=== PATIENT | male | born 1980 | race American Indian/Alaskan Native ===

== ENCOUNTER 2018-05-13 13:12 | Emergency (ER) | payer SELFPAY ==
--- NOTE | 2018-05-13 14:02 | Emergency Department Report ---
Blank Doc - Documentation Documentation: This is a 38-year-old male that presents with vomiting and body aches. Stated history of DM and does take medications regularly. This initial assessment/diagnostic orders/clinical plan/treatment(s) is/are subject to change based on patient's health status, clinical progression and re- assessment by fellow clinical providers in the ED. Further treatment and workup at subsequent clinical providers discretion. Patient/guardians urged not to elope from the ED as their condition may be serious if not clinically assessed and managed. Initial orders include: 1- Patient sent to [facility] for further evaluation and treatment 2- Labs 3- UA
[2018-05-13 14:03] VITALS: BP 119/91
[2018-05-13 14:49] LABS: Basophils % (Auto) 0.4 % (0.0-1.8); Eosinophils # (Auto) 0.1 K/mm3 (0.0-0.4); Eosinophils % (Auto) 1.3 % (0.0-4.3); Hematocrit 46.1 % (35.5-45.6); Hemoglobin 15.2 gm/dl (11.8-15.2); Lymphocytes # (Auto) 2.2 K/mm3 (1.2-5.4); Lymphocytes % (Auto) 34.1 % (13.4-35.0); Mean Corpuscular HGB Conc 33 % (32-34); Mean Corpuscular Volume 89 fl (84-94); Monocytes # (Auto) 0.8 K/mm3 (0.0-0.8); Monocytes % (Auto) 12.2 % (0.0-7.3); Platelet Count 259 K/mm3 (140-440); Red Blood Count 5.17 M/mm3 (3.65-5.03); Red Cell Distribution Width 12.8 % (13.2-15.2)
[2018-05-13 14:55] LABS: Alanine Aminotransferase 25 units/L (7-56); Albumin 4.5 g/dL (3.9-5); BUN/Creatinine Ratio 14; Bilirubin,Direct 0.3 mg/dL (0-0.2); Blood Urea Nitrogen 14 mg/dL (9-20); Calcium 9.5 mg/dL (8.4-10.2); Hemolysis Index 6
[2018-05-13] MEDS ORDERED: ZOFRAN IV ONE (17:14)
[2018-05-13] MEDS ORDERED: NACL 0.9% 1000 ML 1,000 ML IV ONE (17:14)
[2018-05-13] MEDS ORDERED: D50W (25GM) Syringe IV ONE (17:40)
--- NOTE | 2018-05-13 18:45 | Emergency Department Report ---
Vomiting/Diarrhea - HPI Chief Complaint: Abdominal Pain Stated Complaint: DIABETIC ISSUES Time Seen by Provider: 05/13/18 14:00 Duration: 3 Days Severity: mild Nausea/Vomiting Severity: Mild Diarrhea Severity: None Pain Location: Other (No abdominal pain) Pain Severity: None Symptoms: Yes Able to Tolerate Fluids, Yes Recent Unusual Foods ([employer]), No Watery Diarrhea, No Bloody diarrhea, No Fever, No Recent Untreated Water, No Recent use of Antibiotics, No Family w/ Similar Symptoms, No Contacts w/ Similar Symptoms, No Rash, No Hematuria, No Recent URI Symptoms Other History: 38-year-old diabetic male who takes NovoLog for his diabetes presents to ED complaining of vomiting for the past 2 days. Patient states it is ago he had a Gray's male and the next day he started feeling queasy. Patient denies diarrhea or abdominal pain. He denies fevers/chills/chest pain/shortness of breath ED Review of Systems ROS: Stated complaint: DIABETIC ISSUES Other details as noted in HPI Comment: All other systems reviewed and negative ED Past Medical Hx - Past Medical History Previous Medical History?: Yes Hx Hypertension: Yes Hx Congestive Heart Failure: No Hx Diabetes: Yes Hx Sickle Cell Disease: Yes (trait only) Hx Asthma: No Hx COPD: No Hx HIV: No Additional medical history: sickle cell trait, DKA. high cholesterol. - Surgical History Past Surgical History?: Yes Additional Surgical History: "ear surgery as a child" - Social History Smoking Status: Current Every Day Smoker Substance Use Type: Alcohol - Medications Home Medications: Home Medications Medication Instructions Recorded Confirmed Last Taken Type Simvastatin [Zocor TAB] 10 mg PO HS #30 tablet 09/10/13 10/01/13 Unknown Rx Insulin NPH/Regular [NovoLIN 70/30] 15 unit SQ QPMDIAB 60 Days ml 10/03/13 Unknown Rx Insulin NPH/Regular [NovoLIN 70/30] 30 unit SQ QAMDIAB 60 Days ml 10/03/13 Unknown Rx Lisinopril [Zestril] 2.5 mg PO QDAY #60 tablet 10/03/13 Unknown Rx Acetaminophen/Codeine [Tylenol #3] 1 tab PO Q6H PRN #30 tab 08/11/14 Unknown Rx Ibuprofen [Motrin] 600 mg PO Q8H PRN #50 tablet 08/11/14 Unknown Rx Sulfamethoxazole/Trimethoprim 1 each PO BID #20 tablet 08/11/14 Unknown Rx [Bactrim Ds] Ondansetron [Zofran ODT TAB] 8 mg PO Q12HR #20 tab.rapdis 05/13/18 Unknown Rx Vomiting Diarrhea Exam - Exam General: Vital signs noted. No distress. Alert and acting appropriately. No active vomiting in the ED. HEENT: Yes Moist Mucous Membranes, No Pharyngeal Erythema, No Pharyngeal Exudates, No Rhinorrhea, No Conjuctival Injection, No Frontal Tenderness, No Maxillary Tenderness Neck: No Adenopathy, No Rigidity Lungs: Yes Clear Lung Sounds, Yes Good Air Exchange, No Wheezes, No Stridor, No Cough, No Nasal Flaring, No Retractions, No Use of Accessory Muscles Heart exam: Regular: Yes, Murmur: No, Tachycardia: No Abdomen: Tenderness: No (on all quadrants), Peritoneal Signs: No, Distention: No, Hyperactive Bowel sounds: No Skin exam: Rash: No, Edema: No, Normal turgor: Yes Neurologic: Alert and oriented, no deficits. Musculoskeletal: Unremarkable. ED Course Vital Signs 05/13/18 14:00 Temperature 97.8 F Pulse Rate 105 H Respiratory 18 Rate Blood Pressure 119/91 O2 Sat by Pulse 98 Oximetry - Reevaluation(s) Reevaluation #1: Patient is resting comfortably, 500 mL done Patient's plan of care glucose decreased to about 40. Dextrose was given Blood glucose increased to 186. he is alert and oriented 3 speaking in clear sentences is in no acute distress 05/13/18 17:05 ED Medical Decision Making - Lab Data Result diagrams: 05/13/18 14:20 05/13/18 14:20 Laboratory Last Values WBC 6.3 K/mm3 (4.5-11.0) 05/13/18 14:20 RBC 5.17 M/mm3 (3.65-5.03) H 05/13/18 14:20 Hgb 15.2 gm/dl (11.8-15.2) 05/13/18 14:20 Hct 46.1 % (35.5-45.6) H 05/13/18 14:20 MCV 89 fl (84-94) 05/13/18 14:20 MCH 30 pg (28-32) 05/13/18 14:20 MCHC 33 % (32-34) 05/13/18 14:20 RDW 12.8 % (13.2-15.2) L 05/13/18 14:20 Plt Count 259 K/mm3 (140-440) 05/13/18 14:20 Lymph % (Auto) 34.1 % (13.4-35.0) 05/13/18 14:20 Granite % (Auto) 12.2 % (0.0-7.3) H 05/13/18 14:20 Eos % (Auto) 1.3 % (0.0-4.3) 05/13/18 14:20 Baso % (Auto) 0.4 % (0.0-1.8) 05/13/18 14:20 Lymph # 2.2 K/mm3 (1.2-5.4) 05/13/18 14:20 Granite # 0.8 K/mm3 (0.0-0.8) 05/13/18 14:20 Eos # 0.1 K/mm3 (0.0-0.4) 05/13/18 14:20 Baso # 0.0 K/mm3 (0.0-0.1) 05/13/18 14:20 Seg Neutrophils % 52.0 % (40.0-70.0) 05/13/18 14:20 Seg Neutrophils # 3.3 K/mm3 (1.8-7.7) 05/13/18 14:20 Sodium 136 mmol/L (137-145) L 05/13/18 14:20 Potassium 3.9 mmol/L (3.6-5.0) 05/13/18 14:20 Chloride 93.2 mmol/L (98-107) L 05/13/18 14:20 Carbon Dioxide 28 mmol/L (22-30) 05/13/18 14:20 Anion Gap 19 mmol/L 05/13/18 14:20 BUN 14 mg/dL (9-20) 05/13/18 14:20 Creatinine 1.0 mg/dL (0.8-1.5) 05/13/18 14:20 Estimated GFR > 60 ml/min 05/13/18 14:20 BUN/Creatinine Ratio 14 % 05/13/18 14:20 Glucose 131 mg/dL (75-100) H 05/13/18 14:20 POC Glucose 186 (70-105) H 05/13/18 18:13 Calcium 9.5 mg/dL (8.4-10.2) 05/13/18 14:20 Total Bilirubin 1.80 mg/dL (0.1-1.2) H 05/13/18 14:20 Direct Bilirubin 0.3 mg/dL (0-0.2) H 05/13/18 14:20 Indirect Bilirubin 1.5 mg/dL 05/13/18 14:20 AST 40 units/L (5-40) 05/13/18 14:20 ALT 25 units/L (7-56) 05/13/18 14:20 Alkaline Phosphatase 64 units/L (35-129) 05/13/18 14:20 Total Protein 8.2 g/dL (6.3-8.2) 05/13/18 14:20 Albumin 4.5 g/dL (3.9-5) 05/13/18 14:20 Albumin/Globulin Ratio 1.2 % 05/13/18 14:20 Lipase 67 units/L (13-60) H 05/13/18 14:20 - Medical Decision Making 38-year-old male presents with mild gastroenteritis. CBC within normal limits no elevated WBCs, electrolytes mildly depleted will resuscitate patient with fluids. 1 L normal saline. Patient received Zofran ODT. Patient had no active vomiting during the ED stay. Patient reports feeling better after administration of Normal saline. Patient will be discharged home with Zofran and instructions for bowel rest. Discussed with the patient to increase hydration Discussed follow-up with primary care physician. Critical care attestation.: If time is entered above; I have spent that time in minutes in the direct care of this critically ill patient, excluding procedure time. ED Disposition Clinical Impression: Vomiting Disposition: DC-01 TO HOME OR SELFCARE Is pt being admited?: No Does the pt Need Aspirin: No Condition: Stable Instructions: Gastroenteritis (ED), Acute Nausea and Vomiting (ED) Additional Instructions: Make sure to follow up with the primary care physician as discussed. Take all your medications as you've been prescribed. If you have any worsening symptoms or develop new symptoms please return to ED immediately. Prescriptions: Ondansetron [Zofran ODT TAB] 8 mg PO Q12HR #20 tab.rapdis Referrals: HOLLY HANSON MD [Primary Care Provider] - 3-5 Days [facility] [Outside] - 3-5 Days [facility] [Outside] - 3-5 Days Forms: Work/School Release Form(ED) Time of Disposition: 18:52
== END 2018-05-13 18:55 | disposition home or self-care (01) ==
LOC: ED 13:12
DX: K52.9 Noninfective gastroenteritis and colitis, unspecified (principal); R11.10 Vomiting, unspecified; I10 Essential (primary) hypertension; E78.00 Pure hypercholesterolemia, unspecified; E11.10 Type 2 diabetes mellitus with ketoacidosis without coma; F17.200 Nicotine dependence, unspecified, uncomplicated; Z79.4 Long term (current) use of insulin
CPT/HCPCS: 36415; 80048; 80076; 82962; 83690; 85025; 96361; 96374; 99283; J2405; J7030

== ENCOUNTER 2019-12-21 14:18 | Inpatient (IN) | payer OTHER ==
--- NOTE | 2019-12-21 14:51 | Event Note ---
ED Screening Note Date of service: 12/21/19 Time: 14:48 ED Screening Note: The patient was evaluated in the emergency department for symptoms described in the history of present illness. He/she was evaluated in the context of the global COVID-19 pandemic, which necessitated consideration that the patient might be at risk for infection with the virus that causes COVID-19. Institutional protocols and algorithms that pertain to the evaluation of patients at risk for COVID-19 are in a state of rapid change based on information released by regulatory bodies including the CDC and federal and state organizations. These policies and algorithms were followed during the patient's care in the emergency department. Please note that these policies, procedures and recommendations changed on a rapid basis. 39-year-old -[place] male presents to the emergency room for elevated blood sugar. This initial assessment/diagnostic orders/clinical plan/treatment(s) is/are subject to change based on patients health status, clinical progression and re- assessment by fellow clinical providers in the ED. Further treatment and workup at subsequent clinical providers discretion. Patient/guardian urged not to elope from the ED as their condition may be serious if not clinically assessed and managed. Initial orders include:
[2019-12-21 15:21] LABS: Basophils % (Auto) 0.3 % (0.0-1.8); Eosinophils % (Auto) 0.8 % (0.0-4.3); Hematocrit 42.3 % (35.5-45.6); Hemoglobin 13.9 gm/dl (11.8-15.2); Lymphocytes # (Auto) 0.9 K/mm3 (1.2-5.4); Lymphocytes % (Auto) 14.6 % (13.4-35.0); Mean Corpuscular HGB Conc 33 % (32-34); Mean Corpuscular Volume 90 fl (84-94); Monocytes # (Auto) 0.3 K/mm3 (0.0-0.8); Monocytes % (Auto) 5.5 % (0.0-7.3); Platelet Count 191 K/mm3 (140-440); Red Blood Count 4.73 M/mm3 (3.65-5.03); Red Cell Distribution Width 12.8 % (13.2-15.2)
[2019-12-21 15:36] LABS: Alanine Aminotransferase 20 units/L (7-56); Albumin 4.1 g/dL (3.9-5); BUN/Creatinine Ratio 12; Blood Urea Nitrogen 12 mg/dL (9-20); Calcium 8.8 mg/dL (8.4-10.2); Hemolysis Index 6
[2019-12-21] MEDS ORDERED: SODIUM CHLORIDE 0.9% 1000 ML 1,000 ML IV ONE ×4 (19:26→23:17)
[2019-12-21] MEDS ORDERED: ONDANSETRON 4 MG/2 ML INJ IV ONE ×2 (19:26→22:35)
[2019-12-21 21:27] LABS: Bilirubin,Urine NEG (Negative); Blood,Urine SM (Negative); Color,Urine Straw (Yellow); RBC,Urine < 1.0 /HPF (0.0-6.0); Urobilinogen,Urine < 2.0 mg/dL (<2.0); WBC,Urine < 1.0 /HPF (0.0-6.0)
--- NOTE | 2019-12-21 21:55 | Emergency Department Report ---
ED N/V/D HPI - General Chief complaint: Hyperglycemia Stated complaint: BODY ACHES/HYPERGLYCEMIA Time Seen by Provider: 12/21/19 21:01 Source: patient, EMS Mode of arrival: Ambulatory Limitations: No Limitations - History of Present Illness Initial comments: 39-year-old male, history of insulin-dependent diabetes, presents to ED with nausea and vomiting. Patient states he believes that he is in DKA. Patient states symptoms have been ongoing for the last 3 days. States that his glucose has been running high over the last week, registering in the 400s. Patient denies any fever or cough. MD complaint: nausea, vomiting -: days(s) (3) Associated Abdominal Pain: Yes Location: diffuse Severity: moderate Quality: cramping Consistency: constant Improves with: none Worsens with: none Associated Symptoms: denies: cough, fever/chills - Related Data Previous Rx's Medication Instructions Recorded Last Taken Type Simvastatin [Zocor TAB] 10 mg PO HS #30 tablet 09/10/13 Unknown Rx Insulin NPH/Regular [NovoLIN 70/30] 15 unit SQ QPMDIAB 60 Days ml 10/03/13 Unknown Rx Insulin NPH/Regular [NovoLIN 70/30] 30 unit SQ QAMDIAB 60 Days ml 10/03/13 Unknown Rx Lisinopril [Zestril] 2.5 mg PO QDAY #60 tablet 10/03/13 Unknown Rx Acetaminophen/Codeine [Tylenol #3] 1 tab PO Q6H PRN #30 tab 08/11/14 Unknown Rx Ibuprofen [Motrin] 600 mg PO Q8H PRN #50 tablet 08/11/14 Unknown Rx Sulfamethoxazole/Trimethoprim 1 each PO BID #20 tablet 08/11/14 Unknown Rx [Bactrim Ds] Ondansetron [Zofran ODT TAB] 8 mg PO Q12HR #20 tab.rapdis 05/13/18 Unknown Rx Allergies Allergy/AdvReac Type Severity Reaction Status Date / Time No Known Allergies Allergy Verified 09/08/13 12:05 ED Review of Systems ROS: Stated complaint: BODY ACHES/HYPERGLYCEMIA Other details as noted in HPI Comment: All other systems reviewed and negative Constitutional: denies: chills, fever Respiratory: denies: cough Gastrointestinal: abdominal pain, nausea, vomiting ED Past Medical Hx - Past Medical History Previous Medical History?: Yes Hx Hypertension: Yes Hx Congestive Heart Failure: No Hx Diabetes: Yes Hx Sickle Cell Disease: Yes (trait only) Hx Asthma: No Hx COPD: No Hx HIV: No Additional medical history: sickle cell trait, DKA. high cholesterol. - Surgical History Past Surgical History?: Yes Additional Surgical History: "ear surgery as a child" - Social History Smoking Status: Current Every Day Smoker Substance Use Type: Alcohol, Marijuana - Medications Home Medications: Home Medications Medication Instructions Recorded Confirmed Last Taken Type Simvastatin [Zocor TAB] 10 mg PO HS #30 tablet 09/10/13 10/01/13 Unknown Rx Insulin NPH/Regular [NovoLIN 70/30] 15 unit SQ QPMDIAB 60 Days ml 10/03/13 Unknown Rx Insulin NPH/Regular [NovoLIN 70/30] 30 unit SQ QAMDIAB 60 Days ml 10/03/13 Unknown Rx Lisinopril [Zestril] 2.5 mg PO QDAY #60 tablet 10/03/13 Unknown Rx Acetaminophen/Codeine [Tylenol #3] 1 tab PO Q6H PRN #30 tab 08/11/14 Unknown Rx Ibuprofen [Motrin] 600 mg PO Q8H PRN #50 tablet 08/11/14 Unknown Rx Sulfamethoxazole/Trimethoprim 1 each PO BID #20 tablet 08/11/14 Unknown Rx [Bactrim Ds] Ondansetron [Zofran ODT TAB] 8 mg PO Q12HR #20 tab.rapdis 05/13/18 Unknown Rx ED Physical Exam - General Limitations: No Limitations General appearance: alert, in no apparent distress - Head Head exam: Present: atraumatic, normocephalic - Eye Eye exam: Present: normal appearance, EOMI - ENT ENT exam: Present: mucous membranes dry - Neck Neck exam: Present: normal inspection - Respiratory Respiratory exam: Present: normal lung sounds bilaterally. Absent: respiratory distress - Cardiovascular Cardiovascular Exam: Present: regular rate, normal rhythm - GI/Abdominal GI/Abdominal exam: Present: soft. Absent: distended, tenderness - Extremities Exam Extremities exam: Present: normal inspection - Neurological Exam Neurological exam: Present: alert, oriented X3 - Psychiatric Psychiatric exam: Present: normal affect, normal mood - Skin Skin exam: Present: warm, dry, intact, normal color ED Course Vital Signs 12/21/19 12/21/19 14:29 20:50 Temperature 97.8 F 97.9 F Pulse Rate 83 99 H Respiratory 20 24 Rate Blood Pressure 128/92 Blood Pressure 147/83 [Right] O2 Sat by Pulse 98 98 Oximetry - Reevaluation(s) Reevaluation #1: 12/21/19 21:00 Initial set of labs collected 6 hours ago. It does appear as though patient may be in mild DKA. Will repeat labs. ED Medical Decision Making - Lab Data Result diagrams: 12/21/19 14:57 12/21/19 21:29 - Medical Decision Making 39-year-old male with history of insulin-dependent diabetes presents to ED with nausea and vomiting, elevated glucose over the last week. Patient appears to be in DKA. Glucose is 391, anion gap 30, bicarb 13, venous pH is 7.25, with small serum ketones present. Patient has already received 1 L bolus of normal saline. Additional fluid has been ordered along with an insulin drip. Patient will be admitted to the ICU with DKA. Spoke with Dr. Schultz, hospitalist, who will admit for further management. - Differential Diagnosis Hyperglycemia, DKA Critical Care Time: Yes Critical care time in (mins) excluding proc time.: 35 Critical care attestation.: If time is entered above; I have spent that time in minutes in the direct care of this critically ill patient, excluding procedure time. Critical Care Time: 35 min ED Disposition Clinical Impression: DKA (diabetic ketoacidosis) Disposition: OP ADMIT IP TO THIS HOSP Is pt being admited?: Yes Condition: Stable Instructions: Diabetes Mellitus Type 2 in Adults (ED) Referrals: PRIMARY CARE, [Primary Care Provider] - 3-5 Days Time of Disposition: 22:19
[2019-12-21 21:59] LABS: BUN/Creatinine Ratio 13; Blood Urea Nitrogen 13 mg/dL (9-20); Hemolysis Index 6
[2019-12-21] MEDS: INSULIN REGULAR, HUMAN 100 UNITS in SODIUM CHLORIDE 0.9% 99 ML IV SCH (22:31)
[2019-12-21] MEDS ORDERED: MORPHINE 2 MG/1 ML INJ IV ONE (22:35)
--- NOTE | 2019-12-21 23:17 | History and Physical Report ---
History of Present Illness Date of examination: 12/21/19 Date of admission: 12/21/2019 Chief complaint: Nausea and vomiting for 3 days. Abdominal cramps with 3 days History of present illness: 39-year-old male with history of insulin-dependent diabetes comes to the em ergency room because of nausea and vomiting. Patient has been having nausea and vomiting for the last 3 days. Patient glucose has been high over 400s in the last 3 days. Patient states is compliant with insulin. Patient thinks he is in DKA. Abdominal pain present which is cramping in nature. Pain is about 5 on a scale of 1-10 intermittent in nature. Vomiting about 4-5 times in a day. No di arrhea. No fever no chills. No exposure to coronavirus. No exacerbating or relieving factors. - Past Medical History Previous Medical History?: Yes --Hypertension: Yes --Congestive Heart Failure: No --Diabetes: Yes --Sickle Cell Disease: Yes (trait only) Additional medical history: sickle cell trait, DKA. high cholesterol. - Surgical History Past Surgical History?: Yes Additional Surgical History: "ear surgery as a child" - Social History Smoking Status: Current Every Day Smoker Substance Use Type: Alcohol, Marijuana Family history --Htn - Medications Home Medications: Home Medications Medication Instructions Recorded Confirmed Last Taken Type Simvastatin [Zocor TAB] 10 mg PO HS #30 tablet 09/10/13 10/01/13 Unknown Rx Insulin NPH/Regular [NovoLIN 70/30] 15 unit SQ QPMDIAB 60 Days ml 10/03/13 Unknown Rx Insulin NPH/Regular [NovoLIN 70/30] 30 unit SQ QAMDIAB 60 Days ml 10/03/13 Unknown Rx Lisinopril [Zestril] 2.5 mg PO QDAY #60 tablet 10/03/13 Unknown Rx Acetaminophen/Codeine [Tylenol #3] 1 tab PO Q6H PRN #30 tab 08/11/14 Unknown Rx Ibuprofen [Motrin] 600 mg PO Q8H PRN #50 tablet 08/11/14 Unknown Rx Sulfamethoxazole/Trimethoprim 1 each PO BID #20 tablet 08/11/14 Unknown Rx [Bactrim Ds] Ondansetron [Zofran ODT TAB] 8 mg PO Q12HR #20 tab.rapdis 05/13/18 Unknown Rx Review of Systems ROS: Stated complaint: Abdominal cramps/HYPERGLYCEMIA Other details as noted in HPI Constitutional no weight loss or weight gain no fever or chills HEENT no sore throat no post nasal drip no diplopia Neck no neck stiffness no lymph gland enlargement Chest and lungs no shortness of breath cough or wheezing CVS no chest pain no diaphoresis no palpitations GI nausea and vomiting present for 3 days, abdominal cramps present for 3 days Genitourinary system no dysuria no flank pain Musculoskeletal system no muscle pains no joint pains 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 Skin no rash no itching Psychiatric no depression no homicidal or suicidal tendencies Hematologic no lymphedema or bruising Endocrine no polydipsia no polyuria no cold intolerance no heat intolerance Medications and Allergies Allergies Allergy/AdvReac Type Severity Reaction Status Date / Time No Known Allergies Allergy Verified 09/08/13 12:05 Home Medications Medication Instructions Recorded Confirmed Last Taken Type Simvastatin [Zocor TAB] 10 mg PO HS #30 tablet 09/10/13 12/22/19 2 Days Ago Rx ~12/20/19 Lisinopril [Zestril] 2.5 mg PO QDAY #60 tablet 10/03/13 12/22/19 2 Days Ago Rx ~12/20/19 Insulin NPH/Regular [NovoLIN 70/30] 10 unit SQ QHS 12/22/19 12/22/19 2 Days Ago History ~12/20/19 Insulin NPH/Regular [NovoLIN 70/30] 20 unit SQ QAMDIAB 12/22/19 12/22/19 2 Days Ago History ~12/20/19 Active Meds: Active Medications Insulin Human Regular 100 (units/ Sodium Chloride) 100 mls @ 1 mls/hr IV TITR HUEY; Protocol Last Admin: 12/21/19 22:31 Dose: 7 units/hr, 7 mls/hr Documented by: Exam - Constitutional Vitals: Temp Pulse Resp BP Pulse Ox 97.9 F 99 H 24 147/83 98 12/21/19 20:50 12/21/19 20:50 12/21/19 20:50 12/21/19 20:50 12/21/19 20:50 General appearance: Present: no acute distress, mild distress, well-nourished - EENT Eyes: Present: PERRL ENT: hearing intact, clear oral mucosa - Neck Neck: Present: supple, normal ROM - Respiratory Respiratory effort: normal Respiratory: bilateral: CTA - Cardiovascular Heart rate: 78 Rhythm: regular Heart Sounds: Present: S1 & S2. Absent: rub, click - Extremities Extremities: pulses symmetrical, No edema Peripheral Pulses: within normal limits - Abdominal General gastrointestinal: Present: soft, non-tender, non-distended, normal bowel sounds Male genitourinary: Present: normal - Rectal Rectal Exam: deferred - Integumentary Integumentary: Present: clear, warm, dry - Musculoskeletal Musculoskeletal: gait normal, strength equal bilaterally - Psychiatric Psychiatric: appropriate mood/affect, intact judgment & insight - Neurologic Neurologic: CNII-XII intact, moves all extremities - Allied Health Allied health notes reviewed: nursing, case management Results - Labs CBC & Chem 7: 12/21/19 14:57 12/22/19 03:24 Labs: Laboratory Last Values WBC 5.8 K/mm3 (4.5-11.0) 12/21/19 14:57 RBC 4.73 M/mm3 (3.65-5.03) 12/21/19 14:57 Hgb 13.9 gm/dl (11.8-15.2) 12/21/19 14:57 Hct 42.3 % (35.5-45.6) 12/21/19 14:57 MCV 90 fl (84-94) 12/21/19 14:57 MCH 29 pg (28-32) 12/21/19 14:57 MCHC 33 % (32-34) 12/21/19 14:57 RDW 12.8 % (13.2-15.2) L 12/21/19 14:57 Plt Count 191 K/mm3 (140-440) 12/21/19 14:57 Lymph % (Auto) 14.6 % (13.4-35.0) 12/21/19 14:57 Coleman % (Auto) 5.5 % (0.0-7.3) 12/21/19 14:57 Eos % (Auto) 0.8 % (0.0-4.3) 12/21/19 14:57 Baso % (Auto) 0.3 % (0.0-1.8) 12/21/19 14:57 Lymph # (Auto) 0.9 K/mm3 (1.2-5.4) L 12/21/19 14:57 Coleman # (Auto) 0.3 K/mm3 (0.0-0.8) 12/21/19 14:57 Eos # (Auto) 0.0 K/mm3 (0.0-0.4) 12/21/19 14:57 Baso # (Auto) 0.0 K/mm3 (0.0-0.1) 12/21/19 14:57 Seg Neutrophils % 78.8 % (40.0-70.0) H 12/21/19 14:57 Seg Neutrophils # 4.6 K/mm3 (1.8-7.7) 12/21/19 14:57 VBG pH 7.259 (7.320-7.420) L 12/21/19 21:29 Sodium 133 mmol/L (137-145) L 12/21/19 21: Potassium 4.8 mmol/L (3.6-5.0) 12/21/19 21: Chloride 94.9 mmol/L (98-107) L 12/21/19 21: Carbon Dioxide 13 mmol/L (22-30) L 12/21/19 21:29 Anion Gap 30 mmol/L 12/21/19 21: BUN 13 mg/dL (9-20) 12/21/19 21: Creatinine 1.0 mg/dL (0.8-1.3) 12/21/19 21:29 Estimated GFR > 60 ml/min 12/21/19 21: BUN/Creatinine Ratio 13 % 12/21/19 21: Glucose 391 mg/dL (75-100) H 12/21/19 21:29 POC Glucose 360 mg/dL (70-105) H 12/21/19 21:14 Ketones Quantitative Small (Negative) 12/21/19 21: Calcium 9.0 mg/dL (8.4-10.2) 12/21/19 21: Phosphorus 3.50 mg/dL (2.5-4.5) 12/21/19 21: Magnesium 1.70 mg/dL (1.7-2.3) 12/21/19 21: Total Bilirubin 0.80 mg/dL (0.1-1.2) 12/21/19 14:57 AST 18 units/L (5-40) 12/21/19 14:57 ALT 20 units/L (7-56) 12/21/19 14:57 Alkaline Phosphatase 80 units/L (35-129) 12/21/19 14:57 Total Protein 7.2 g/dL (6.3-8.2) 12/21/19 14:57 Albumin 4.1 g/dL (3.9-5) 12/21/19 14:57 Albumin/Globulin Ratio 1.3 % 12/21/19 14:57 Urine Color Straw (Yellow) 12/21/19 21:15 Urine Turbidity Clear (Clear) 12/21/19 21:15 Urine pH 5.0 (5.0-7.0) 12/21/19 21:15 Ur Specific Prim 1.017 (1.003-1.030) 12/21/19 21:15 Urine Protein 30 mg/dl mg/dL (Negative) 12/21/19 21:15 Urine Glucose (UA) >=500 mg/dL (Negative) 12/21/19 21:15 Urine Ketones 80 mg/dL (Negative) 12/21/19 21:15 Urine Blood Sm (Negative) 12/21/19 21:15 Urine Nitrite Neg (Negative) 12/21/19 21:15 Urine Bilirubin Neg (Negative) 12/21/19 21:15 Urine Urobilinogen < 2.0 mg/dL (<2.0) 12/21/19 21:15 Ur Leukocyte Esterase Neg (Negative) 12/21/19 21:15 Urine WBC (Auto) < 1.0 /HPF (0.0-6.0) 12/21/19 21:15 Urine RBC (Auto) < 1.0 /HPF (0.0-6.0) 12/21/19 21:15 U Epithel Cells (Auto) < 1.0 /HPF (0-13.0) 12/21/19 21:15 Short CBC 12/21/19 Range/Units 14:57 WBC 5.8 (4.5-11.0) K/mm3 Hgb 13.9 (11.8-15.2) gm/dl Hct 42.3 (35.5-45.6) % Plt Count 191 (140-440) K/mm3 BMP 12/21/19 12/21/19 12/22/19 14:57 21:29 00:04 Sodium 134 L 133 L 138 Potassium 4.8 4.8 4.3 Chloride 93.0 L 94.9 L 99.4 Carbon Dioxide 17 L 13 L 13 L BUN 12 13 13 Creatinine 1.0 1.0 1.1 Glucose 370 H 391 H 287 H Calcium 8.8 9.0 8.6 12/22/19 03:24 Sodium 140 Potassium 4.3 Chloride 104.4 Carbon Dioxide 17 L BUN 11 Creatinine 1.0 Glucose 102 H Calcium 8.5 Liver Function 12/21/19 Range/Units 14:57 Total Bilirubin 0.80 (0.1-1.2) mg/dL AST 18 (5-40) units/L ALT 20 (7-56) units/L Alkaline Phosphatase 80 (35-129) units/L Albumin 4.1 (3.9-5) g/dL Urine 12/21/19 Range/Units 21:15 Urine Color Straw (Yellow) Urine pH 5.0 (5.0-7.0) Ur Specific Prim 1.017 (1.003-1.030) Urine Protein 30 mg/dl (Negative) mg/dL Urine Glucose (UA) >=500 (Negative) mg/dL Assessment and Plan Assessment and plan: Critical care statement The high probability OF a clinically significant sudden or life-threatening deterioration of the cardiorespiratory system and endocrine system required my full and direct attention, intervention and postoperative management. The aggregate medical care time was 35 minutes. The time is in addition to time spent performing reported procedures but includes the followin: Data review and interpretation 2: Patient assessment and monitoring of vital signs 3: Documentation 4:: Medication orders and management Advance Directives: Yes (Full code) VTE prophylaxis?: Chemical Plan of care discussed with patient/family: Yes - Patient Problems (1) DKA (diabetic ketoacidosis) Current Visit: Yes Status: Acute Qualifiers: Diabetes mellitus moth exterminator insulin use: with moth exterminator use Diabetes mellitus complication detail: without coma Plan to address problem: Patient is in DKA IV insulin drip to be titrated to keep the blood glucose levels around 100 IV fluids in the form of normal saline followed by D5 normal saline Potassium supplements if necessary (2) Hyponatremia Current Visit: Yes Status: Acute Plan to address problem: Should correct with correction of blood glucose levels (3) Hyperlipidemia Current Visit: No Status: Chronic Qualifiers: Hyperlipidemia type: mixed hyperlipidemia Qualified Code(s): E78.2 - Mixed hyperlipidemia Plan to address problem: Continue statins (4) Hypertension Current Visit: No Status: Chronic Qualifiers: Hypertension type: essential hypertension Qualified Code(s): I10 - Essential (primary) hypertension Plan to address problem: Continue antihypertensives and adjust medications as necessary (5) DVT prophylaxis Current Visit: No Status: Acute Plan to address problem: On heparin and GI prophylaxis
[2019-12-21] MEDS ORDERED: HYDROmorphone 1 MG/1 ML INJ IV PRN ×2 (23:19)
[2019-12-21] MEDS ORDERED: INSULIN REGULAR, HUMAN 100 UNITS in SODIUM CHLORIDE 0.9% 99 ML IV SCH (23:45)
[2019-12-21] MEDS ORDERED: POTASSIUM CHLORIDE 20 MEQ 20 MEQ/100 ML BAG IV SCH (23:45)
[2019-12-22] MEDS ORDERED: SODIUM CHLORIDE 0.9% 1000 ML 1,000 ML ONE (00:14)
[2019-12-22] MEDS: INSULIN REGULAR, HUMAN 100 UNITS in SODIUM CHLORIDE 0.9% 99 ML IV SCH (00:17)
[2019-12-22 00:30] LABS: BUN/Creatinine Ratio 12; Blood Urea Nitrogen 13 mg/dL (9-20); Calcium 8.6 mg/dL (8.4-10.2); Hemolysis Index 3
[2019-12-22] MEDS: D5W/0.45% NACL/KCL 20 MEQ 20 MEQ/1,000 ML BAG IV SCH ×2 (02:22→10:26)
[2019-12-22 04:10] LABS: BUN/Creatinine Ratio 11; Blood Urea Nitrogen 11 mg/dL (9-20); Calcium 8.5 mg/dL (8.4-10.2); Hemolysis Index 10
[2019-12-22] MEDS: ONDANSETRON 4 MG/2 ML INJ IV PRN ×2 (05:53→15:21)
[2019-12-22 07:11] LABS: BUN/Creatinine Ratio 11; Blood Urea Nitrogen 10 mg/dL (9-20); Calcium 8.6 mg/dL (8.4-10.2); Hemolysis Index 12
[2019-12-22] MEDS: ACETAMINOPHEN 325 MG TAB PO PRN ×2 (09:21→19:55)
[2019-12-22] MEDS: DEXTROSE 50% IN WATER (25GM) 50 ML SYRINGE IV PRN (10:26)
[2019-12-22 15:12] LABS: BUN/Creatinine Ratio 9; Blood Urea Nitrogen 9 mg/dL (9-20); Calcium 8.5 mg/dL (8.4-10.2); Hemolysis Index 11
--- NOTE | 2019-12-22 18:07 | Progress Note ---
Assessment and Plan Critical care statement The high probability OF a clinically significant sudden or life-threatening deterioration of the cardiorespiratory system and endocrine system required my full and direct attention, intervention and postoperative management. The aggregate medical care time was 35 minutes. The time is in addition to time spent performing reported procedures but includes the followin: Data review and interpretation 2: Patient assessment and monitoring of vital signs 3: Documentation 4:: Medication orders and management - Patient Problems (1) DKA (diabetic ketoacidosis) Current Visit: Yes Status: Acute Qualifiers: Diabetes mellitus equipment operator intermodal yard insulin use: with equipment operator intermodal yard use Diabetes mellitus complication detail: without coma Plan to address problem: Patient is in DKA IV insulin drip to be titrated to keep the blood glucose levels around 100 IV fluids in the form of normal saline followed by D5 normal saline Potassium supplements if necessary Improved Transfer to medical floor (2) Hyponatremia Current Visit: Yes Status: Acute Plan to address problem: Should correct with correction of blood glucose levels (3) Hyperlipidemia Current Visit: No Status: Chronic Qualifiers: Hyperlipidemia type: mixed hyperlipidemia Qualified Code(s): E78.2 - Mixed hyperlipidemia Plan to address problem: Continue statins (4) Hypertension Current Visit: No Status: Chronic Qualifiers: Hypertension type: essential hypertension Qualified Code(s): I10 - Essential (primary) hypertension Plan to address problem: Continue antihypertensives and adjust medications as necessary (5) DVT prophylaxis Current Visit: No Status: Acute Plan to address problem: On heparin and GI prophylaxis Subjective Date of service: 12/22/19 Principal diagnosis: DKA Interval history: 39-year-old male with history of insulin-dependent diabetes comes to the emergency room because of nausea and vomiting. Patient has been having nausea and vomiting for the last 3 days. Patient glucose has been high over 400s in the last 3 days. Patient states is compliant with insulin. Patient thinks he is in DKA. Abdominal pain present which is cramping in nature. Pain is about 5 on a scale of 1-10 intermittent in nature. Vomiting about 4-5 times in a day. No diarrhea. No fever no chills. No exposure to coronavirus. No exacerbating or relieving factors. Objective - Constitutional Vitals: Vital Signs - 12hr 12/22/19 12/22/19 12/22/19 06:11 06:21 06:31 Temperature Pulse Rate 100 H 91 H 91 H Pulse Rate [ From Monitor] Respiratory 15 16 16 Rate Blood Pressure 110/50 110/50 110/50 O2 Sat by Pulse 98 98 98 Oximetry 12/22/19 12/22/19 12/22/19 06:41 06:51 07:00 Temperature Pulse Rate 122 H 85 83 Pulse Rate [ From Monitor] Respiratory 30 H 16 14 Rate Blood Pressure 110/50 110/50 113/63 O2 Sat by Pulse 99 99 98 Oximetry 12/22/19 12/22/19 12/22/19 07:10 07:11 07:21 Temperature Pulse Rate 87 85 Pulse Rate [ 110 H From Monitor] Respiratory 12 15 14 Rate Blood Pressure 113/63 113/63 O2 Sat by Pulse 98 98 99 Oximetry 12/22/19 12/22/19 12/22/19 07:31 07:41 07:51 Temperature Pulse Rate 83 79 85 Pulse Rate [ From Monitor] Respiratory 14 13 18 Rate Blood Pressure 113/63 113/63 113/63 O2 Sat by Pulse 99 99 98 Oximetry 12/22/19 12/22/19 12/22/19 08:00 08:11 08:21 Temperature 97.7 F Pulse Rate 78 77 84 Pulse Rate [ 86 From Monitor] Respiratory 15 13 13 Rate Blood Pressure 109/60 109/60 109/60 O2 Sat by Pulse 99 99 98 Oximetry 12/22/19 12/22/19 12/22/19 08:31 08:41 08:51 Temperature Pulse Rate 77 83 84 Pulse Rate [ From Monitor] Respiratory 13 13 12 Rate Blood Pressure 109/60 109/60 109/60 O2 Sat by Pulse 99 99 100 Oximetry 12/22/19 12/22/19 12/22/19 09:00 09:11 09:21 Temperature Pulse Rate 77 82 67 Pulse Rate [ From Monitor] Respiratory 12 17 19 Rate Blood Pressure 112/68 112/68 112/68 O2 Sat by Pulse 99 100 100 Oximetry 12/22/19 12/22/19 12/22/19 09:31 09:41 09:51 Temperature Pulse Rate 79 85 94 H Pulse Rate [ From Monitor] Respiratory 17 12 14 Rate Blood Pressure 112/68 112/68 112/68 O2 Sat by Pulse 99 100 100 Oximetry 12/22/19 12/22/19 12/22/19 10:00 10:11 10:21 Temperature Pulse Rate 73 76 60 Pulse Rate [ From Monitor] Respiratory 14 15 15 Rate Blood Pressure 92/53 92/53 92/53 O2 Sat by Pulse 99 100 100 Oximetry 12/22/19 12/22/19 12/22/19 10:31 10:41 10:51 Temperature Pulse Rate 81 82 73 Pulse Rate [ From Monitor] Respiratory 13 20 14 Rate Blood Pressure 92/53 92/53 92/53 O2 Sat by Pulse 99 92 99 Oximetry 12/22/19 12/22/19 12/22/19 11:00 11:11 11:21 Temperature Pulse Rate 77 80 77 Pulse Rate [ From Monitor] Respiratory 14 16 15 Rate Blood Pressure 96/47 96/47 96/47 O2 Sat by Pulse 99 100 99 Oximetry 12/22/19 12/22/19 12/22/19 11:31 11:41 11:51 Temperature Pulse Rate 81 81 78 Pulse Rate [ From Monitor] Respiratory 16 15 16 Rate Blood Pressure 96/47 96/47 96/47 O2 Sat by Pulse 99 99 98 Oximetry 12/22/19 12/22/19 12/22/19 12:00 12:11 12:21 Temperature 97.9 F Pulse Rate 74 76 87 Pulse Rate [ 77 From Monitor] Respiratory 15 17 18 Rate Blood Pressure 100/60 100/60 100/60 O2 Sat by Pulse 98 99 99 Oximetry 12/22/19 12/22/19 12/22/19 12:31 12:41 12:51 Temperature Pulse Rate 79 74 78 Pulse Rate [ From Monitor] Respiratory 15 16 14 Rate Blood Pressure 100/60 100/60 100/60 O2 Sat by Pulse 100 100 99 Oximetry 12/22/19 12/22/19 12/22/19 13:00 13:11 13:20 Temperature Pulse Rate 71 73 75 Pulse Rate [ From Monitor] Respiratory 14 15 13 Rate Blood Pressure 99/60 99/60 99/60 O2 Sat by Pulse 100 100 100 Oximetry 12/22/19 12/22/19 12/22/19 13:31 13:41 13:51 Temperature Pulse Rate 87 71 74 Pulse Rate [ From Monitor] Respiratory 14 14 15 Rate Blood Pressure 99/60 99/60 99/60 O2 Sat by Pulse 100 100 100 Oximetry 12/22/19 12/22/19 12/22/19 14:00 14:11 14:21 Temperature Pulse Rate 72 72 92 H Pulse Rate [ From Monitor] Respiratory 14 13 14 Rate Blood Pressure 92/54 92/54 92/54 O2 Sat by Pulse 100 100 100 Oximetry 12/22/19 12/22/19 12/22/19 14:31 14:41 14:51 Temperature Pulse Rate 71 79 62 Pulse Rate [ From Monitor] Respiratory 14 17 15 Rate Blood Pressure 92/54 92/54 92/54 O2 Sat by Pulse 100 100 100 Oximetry 12/22/19 12/22/19 12/22/19 15:00 15:10 15:20 Temperature Pulse Rate 70 71 66 Pulse Rate [ From Monitor] Respiratory 14 15 14 Rate Blood Pressure 92/54 79/53 O2 Sat by Pulse 100 100 100 Oximetry 12/22/19 12/22/19 12/22/19 15:30 15:40 15:50 Temperature Pulse Rate 62 68 67 Pulse Rate [ From Monitor] Respiratory 15 15 15 Rate Blood Pressure 79/53 79/53 79/53 O2 Sat by Pulse 100 100 100 Oximetry 12/22/19 12/22/19 12/22/19 16:00 16:10 16:20 Temperature 98.2 F Pulse Rate 63 64 71 Pulse Rate [ 65 From Monitor] Respiratory 16 14 12 Rate Blood Pressure 110/71 110/71 110/71 O2 Sat by Pulse 100 100 100 Oximetry 12/22/19 12/22/19 12/22/19 16:30 16:40 16:50 Temperature Pulse Rate 62 61 66 Pulse Rate [ From Monitor] Respiratory 14 14 15 Rate Blood Pressure 110/71 110/71 110/71 O2 Sat by Pulse 100 100 99 Oximetry 12/22/19 12/22/19 12/22/19 17:00 17:10 17:20 Temperature Pulse Rate 61 75 67 Pulse Rate [ From Monitor] Respiratory 13 15 15 Rate Blood Pressure 104/69 104/69 104/69 O2 Sat by Pulse 100 99 100 Oximetry 12/22/19 17:30 Temperature Pulse Rate 58 L Pulse Rate [ From Monitor] Respiratory 12 Rate Blood Pressure 104/69 O2 Sat by Pulse 100 Oximetry General appearance: Present: no acute distress, well-nourished - EENT Eyes: PERRL, EOM intact ENT: hearing intact, clear oral mucosa Ears: bilateral: normal - Neck Neck: supple, normal ROM - Respiratory Respiratory effort: normal Respiratory: bilateral: CTA - Breasts Breasts: normal - Cardiovascular Heart rate: 78 Rhythm: regular Heart Sounds: Present: S1 & S2. Absent: gallop, rub Extremities: pulses intact, No edema, normal color, Full ROM - Gastrointestinal General gastrointestinal: Present: soft, non-tender, non-distended, normal bowel sounds - Genitourinary Male genitourinary: normal - Integumentary Integumentary: clear, warm, dry - Musculoskeletal Musculoskeletal: 1, strength equal bilaterally - Neurologic Neurologic: moves all extremities - Psychiatric Psychiatric: memory intact, appropriate mood/affect, intact judgment & insight - Labs CBC & Chem 7: 12/21/19 14:57 12/22/19 22:33 Labs: Abnormal lab results 12/21/19 12/21/19 12/21/19 Range/Units 19:40 21:14 21:29 VBG pH (7.320-7.420) Sodium 133 L (137-145) mmol/L Chloride 94.9 L (98-107) mmol/L Carbon Dioxide 13 L (22-30) mmol/L Glucose 391 H (75-100) mg/dL POC Glucose 308 H 360 H (70-105) mg/dL Hemoglobin A1c (4-6) % 12/21/19 12/21/19 12/22/19 Range/Units 21:29 23:59 00:04 VBG pH 7.259 L (7.320-7.420) Sodium (137-145) mmol/L Chloride (98-107) mmol/L Carbon Dioxide 13 L (22-30) mmol/L Glucose 287 H (75-100) mg/dL POC Glucose (70-105) mg/dL Hemoglobin A1c 9.5 H (4-6) % 12/22/19 12/22/19 12/22/19 Range/Units 00:28 01:22 02:22 VBG pH (7.320-7.420) Sodium (137-145) mmol/L Chloride (98-107) mmol/L Carbon Dioxide (22-30) mmol/L Glucose (75-100) mg/dL POC Glucose 350 H 261 H 172 H (70-105) mg/dL Hemoglobin A1c (4-6) % 12/22/19 12/22/19 12/22/19 Range/Units 03:24 03:28 04:35 VBG pH (7.320-7.420) Sodium (137-145) mmol/L Chloride (98-107) mmol/L Carbon Dioxide 17 L (22-30) mmol/L Glucose 102 H (75-100) mg/dL POC Glucose 128 H 120 H (70-105) mg/dL Hemoglobin A1c (4-6) % 12/22/19 12/22/19 12/22/19 Range/Units 05:27 06:16 06:41 VBG pH (7.320-7.420) Sodium (137-145) mmol/L Chloride (98-107) mmol/L Carbon Dioxide 13 L (22-30) mmol/L Glucose 218 H (75-100) mg/dL POC Glucose 137 H 228 H (70-105) mg/dL Hemoglobin A1c (4-6) % 12/22/19 12/22/19 12/22/19 Range/Units 07:32 08:33 10:38 VBG pH (7.320-7.420) Sodium (137-145) mmol/L Chloride (98-107) mmol/L Carbon Dioxide (22-30) mmol/L Glucose (75-100) mg/dL POC Glucose 190 H 138 H 69 L (70-105) mg/dL Hemoglobin A1c (4-6) % 12/22/19 12/22/19 12/22/19 Range/Units 11:03 11:35 12:31 VBG pH (7.320-7.420) Sodium (137-145) mmol/L Chloride (98-107) mmol/L Carbon Dioxide (22-30) mmol/L Glucose (75-100) mg/dL POC Glucose 177 H 183 H 204 H (70-105) mg/dL Hemoglobin A1c (4-6) % 12/22/19 12/22/19 12/22/19 Range/Units 13:25 14:21 14:32 VBG pH (7.320-7.420) Sodium (137-145) mmol/L Chloride (98-107) mmol/L Carbon Dioxide (22-30) mmol/L Glucose 129 H (75-100) mg/dL POC Glucose 170 H 144 H (70-105) mg/dL Hemoglobin A1c (4-6) %
[2019-12-22] MEDS ORDERED: LISINOPRIL 2.5 MG PO SCH (18:15)
[2019-12-22] MEDS: SODIUM CHLORIDE 0.9% 1000 ML 1,000 ML IV SCH (18:33)
[2019-12-22] MEDS: LISINOPRIL 5 MG TAB PO SCH (19:49)
[2019-12-22] MEDS ORDERED: SIMVASTATIN 10 MG PO SCH (22:00)
[2019-12-22] MEDS: INSULIN LISPRO 100 UNIT/ML VIAL 3 mL SUB-Q SCH (22:19)
[2019-12-22] MEDS: PRAVASTATIN 20 MG TAB PO SCH (22:28)
[2019-12-22 23:01] LABS: BUN/Creatinine Ratio 11; Blood Urea Nitrogen 12 mg/dL (9-20); Calcium 8.5 mg/dL (8.4-10.2); Hemolysis Index 6
[2019-12-22] MEDS ORDERED: ACETAMINOPHEN 325 MG TAB ONE (23:40)
[2019-12-23] MEDS ORDERED: ONDANSETRON 4 MG/2 ML INJ ONE (05:51)
[2019-12-23] MEDS ORDERED: HYDROmorphone 1 MG/1 ML INJ ONE (05:51)
[2019-12-23] MEDS ORDERED: INSULIN NPH/REGULAR 70/30 INJ SUB-Q SCH (08:00)
[2019-12-23] MEDS ORDERED: SODIUM CHLORIDE 0.9% 1000 ML IV SOLN ONE ×2 (08:39→17:02)
[2019-12-23] MEDS ORDERED: LISINOPRIL 5 MG TAB ONE (09:34)
--- NOTE | 2019-12-23 18:04 | Progress Note ---
Assessment and Plan Assessment and plan: DKA (diabetic ketoacidosis) Resolved. RTesume home insulin regimen of 70/30 20units qam and 10 units qhs Hyponatremia Should correct with correction of blood glucose levels Hyperlipidemia Continue statins Hypertension Continue antihypertensives and adjust medications as necessary DVT prophylaxis On heparin and GI prophylaxis History Interval history: no new issues Hospitalist Physical - Constitutional Vitals: Temp Pulse Resp BP Pulse Ox 98.1 F 70 18 118/78 100 12/22/19 21:00 12/22/19 21:00 12/22/19 21:00 12/22/19 21:00 12/22/19 21:00 General appearance: Present: no acute distress, well-nourished - EENT Eyes: Present: PERRL, EOM intact ENT: hearing intact, clear oral mucosa, dentition normal - Neck Neck: Present: supple, normal ROM - Respiratory Respiratory effort: normal Respiratory: bilateral: CTA - Cardiovascular Rhythm: regular Heart Sounds: Present: S1 & S2. Absent: gallop, rub - Extremities Extremities: no ischemia, No edema, Full ROM - Abdominal General gastrointestinal: soft, non-tender, non-distended, normal bowel sounds - Integumentary Integumentary: Present: clear, warm, dry - Neurologic Neurologic: CNII-XII intact, moves all extremities Results - Labs CBC & Chem 7: 12/21/19 14:57 12/22/19 22:33 Labs: Laboratory Last Values WBC 5.8 K/mm3 (4.5-11.0) 12/21/19 14:57 RBC 4.73 M/mm3 (3.65-5.03) 12/21/19 14:57 Hgb 13.9 gm/dl (11.8-15.2) 12/21/19 14:57 Hct 42.3 % (35.5-45.6) 12/21/19 14:57 MCV 90 fl (84-94) 12/21/19 14:57 MCH 29 pg (28-32) 12/21/19 14:57 MCHC 33 % (32-34) 12/21/19 14:57 RDW 12.8 % (13.2-15.2) L 12/21/19 14:57 Plt Count 191 K/mm3 (140-440) 12/21/19 14:57 Lymph % (Auto) 14.6 % (13.4-35.0) 12/21/19 14:57 [place] % (Auto) 5.5 % (0.0-7.3) 12/21/19 14:57 Eos % (Auto) 0.8 % (0.0-4.3) 12/21/19 14:57 Baso % (Auto) 0.3 % (0.0-1.8) 12/21/19 14:57 Lymph # (Auto) 0.9 K/mm3 (1.2-5.4) L 12/21/19 14:57 [place] # (Auto) 0.3 K/mm3 (0.0-0.8) 12/21/19 14:57 Eos # (Auto) 0.0 K/mm3 (0.0-0.4) 12/21/19 14:57 Baso # (Auto) 0.0 K/mm3 (0.0-0.1) 12/21/19 14:57 Seg Neutrophils % 78.8 % (40.0-70.0) H 12/21/19 14:57 Seg Neutrophils # 4.6 K/mm3 (1.8-7.7) 12/21/19 14:57 VBG pH 7.259 (7.320-7.420) L 12/21/19 21:29 Sodium 131 mmol/L (137-145) L 12/22/19 22:33 Potassium 4.3 mmol/L (3.6-5.0) 12/22/19 22:33 Chloride 93.7 mmol/L (98-107) L 12/22/19 22:33 Carbon Dioxide 18 mmol/L (22-30) L 12/22/19 22:33 Anion Gap 24 mmol/L 12/22/19 22:33 BUN 12 mg/dL (9-20) 12/22/19 22:33 Creatinine 1.1 mg/dL (0.8-1.3) 12/22/19 22:33 Estimated GFR > 60 ml/min 12/22/19 22:33 BUN/Creatinine Ratio 11 % 12/22/19 22:33 Glucose 317 mg/dL (75-100) H 12/22/19 22:33 POC Glucose 107 mg/dL (70-105) H 12/23/19 16:23 Hemoglobin A1c 9.5 % (4-6) H 12/21/19 23:59 Ketones Quantitative Small (Negative) 12/21/19 21:29 Calcium 8.5 mg/dL (8.4-10.2) 12/22/19 22:33 Phosphorus 3.30 mg/dL (2.5-4.5) 12/21/19 23:59 Magnesium 1.80 mg/dL (1.7-2.3) 12/21/19 23:59 Total Bilirubin 0.80 mg/dL (0.1-1.2) 12/21/19 14:57 AST 18 units/L (5-40) 12/21/19 14:57 ALT 20 units/L (7-56) 12/21/19 14:57 Alkaline Phosphatase 80 units/L (35-129) 12/21/19 14:57 Total Protein 7.2 g/dL (6.3-8.2) 12/21/19 14:57 Albumin 4.1 g/dL (3.9-5) 12/21/19 14:57 Albumin/Globulin Ratio 1.3 % 12/21/19 14:57 Urine Color Straw (Yellow) 12/21/19 21:15 Urine Turbidity Clear (Clear) 12/21/19 21:15 Urine pH 5.0 (5.0-7.0) 12/21/19 21:15 Ur Specific [place] 1.017 (1.003-1.030) 12/21/19 21:15 Urine Protein 30 mg/dl mg/dL (Negative) 12/21/19 21:15 Urine Glucose (UA) >=500 mg/dL (Negative) 12/21/19 21:15 Urine Ketones 80 mg/dL (Negative) 12/21/19 21:15 Urine Blood Sm (Negative) 12/21/19 21:15 Urine Nitrite Neg (Negative) 12/21/19 21:15 Urine Bilirubin Neg (Negative) 12/21/19 21:15 Urine Urobilinogen < 2.0 mg/dL (<2.0) 12/21/19 21:15 Ur Leukocyte Esterase Neg (Negative) 12/21/19 21:15 Urine WBC (Auto) < 1.0 /HPF (0.0-6.0) 12/21/19 21:15 Urine RBC (Auto) < 1.0 /HPF (0.0-6.0) 12/21/19 21:15 U Epithel Cells (Auto) < 1.0 /HPF (0-13.0) 12/21/19 21:15 Sheth/IV: Voiding Method Urinal IV Catheter Type [Right Hand] Peripheral IV Active Medications - Current Medications Current Medications: Generic Name Dose Route Start Last Admin Trade Name Freq PRN Reason Stop Dose Admin Acetaminophen 650 mg 12/21/19 23:19 12/22/19 19:55 Tylenol PO 650 mg Q4H PRN Administration Pain MILD(1-3)/Fever >100.5/HART Dextrose 0 ml 12/21/19 23:17 12/22/19 10:26 D50w (25gm) Syringe IV 15 ml Q30MIN PRN Administration Hypoglycemia Protocol Hydromorphone HCl 0.25 mg 12/21/19 23:19 Dilaudid IV Q3H PRN Pain, Moderate (4-6) Hydromorphone HCl 0.5 mg 12/21/19 23:19 12/22/19 05:53 Dilaudid IV 0.5 mg Q3H PRN Administration Pain , Severe (7-10) Sodium Chloride 1,000 mls @ 100 mls/hr 12/22/19 19:15 12/22/19 18:33 Nacl 0.9% 1000 Ml IV 100 mls/hr DIRECT HUEY Administration Insulin Human Isoph/Insulin Regular 25 unit 12/23/19 08:00 Humulin 70/30 SUB-Q QAMDIAB HUEY Insulin Human Lispro 0 unit 12/22/19 22:10 12/22/19 22:19 Humalog SUB-Q Not Given Q4HR HUEY Protocol Lisinopril 2.5 mg 12/22/19 20:00 12/22/19 19:49 Zestril PO 2.5 mg QDAY HUEY Administration Ondansetron HCl 4 mg 12/21/19 23:19 12/22/19 15:21 Zofran IV 4 mg Q8H PRN Administration Nausea And Vomiting Pravastatin Sodium 20 mg 12/22/19 22:00 12/22/19 22:28 Pravachol PO 20 mg HS HUEY Administration Sodium Chloride 10 ml 12/21/19 23:45 12/22/19 21:15 Sodium Chloride Flush Syringe 10 Ml IV 10 ml BID HUEY Administration Sodium Chloride 10 ml 10/25/20 23:19 Sodium Chloride Flush Syringe 10 Ml IV PRN PRN LINE FLUSH Nutrition/Malnutrition Assess - Dietary Evaluation Nutrition/Malnutrition Findings: Nutrition Notes Start: 12/22/19 11:14 Freq: Status: Active Protocol: Document 12/22/19 11:14 MISAEL (Rec: 12/22/19 11:22 [id number]) Nutrition Notes Need for Assessment generated from: MD Order,Education Initial or Follow up Brief Note Current Diagnosis Diabetes Other Pertinent Diagnosis T1DM Current Diet NPO Subjective/Other Information MD consult for diet edu. Pt reports 10% wt loss in past 3 mo. No muscle or fat wasting noted. Pt reports knowing what to eat but eats "unhealthy often". Pt states he takes his insulin but does not see a PCP or have any outpatient care to help adjust regimen. Prior to DKA pt eating 100% of meals and is currently hungry . #1 Nutrition Diagnosis Food and nutrition-related knowledge deficit Etiology lack of adquate prior education As Evidenced by Signs and Symptoms pt had questions about DKA Nutrition Intervention Teaching Recipient Patient Learning Readiness Good Teaching Methods Discussion,Handout Response to Teaching Verbalize understanding Education Handouts Provided DKA Hypo/Hyperglyemia Symtoms Barriers to Learning No Barriers RD phone number provided Yes Patient aware of follow up options Yes Revisit per MD consult or patient Sign Off request:
[2019-12-23] MEDS: INSULIN LISPRO 100 UNIT/ML VIAL 3 mL SUB-Q SCH ×2 (18:32→22:00)
[2019-12-23] MEDS: ACETAMINOPHEN 325 MG TAB PO PRN (18:40)
[2019-12-23] MEDS: PRAVASTATIN 20 MG TAB PO SCH (21:18)
[2019-12-23] MEDS: DEXTROSE 50% IN WATER (25GM) 50 ML SYRINGE IV PRN (21:19)
[2019-12-24] MEDS: INSULIN LISPRO 100 UNIT/ML VIAL 3 mL SUB-Q SCH ×6 (02:32→12:18)
[2019-12-24] MEDS: SODIUM CHLORIDE 0.9% 1000 ML 1,000 ML IV SCH (05:39)
[2019-12-24] MEDS: LISINOPRIL 5 MG TAB PO SCH (09:42)
--- NOTE | 2019-12-24 12:08 | Discharge Summary ---
Providers - Providers Date of Admission: 12/21/19 23:19 Date of discharge: 12/24/19 Attending physician: ANGELA BAUER 12/21/19 23:17 Consult to Dietitian/Nutrition [CONS] Routine Physician Instructions: Reason For Exam: DKA Reason for Consult: Nutrition Recommendations Reason for Consult: Diet education Primary care physician: DISPLAY TRIMMER Hospitalization Reason for admission: DKA Condition: Stable Hospital course: 39-year-old male with history of insulin-dependent diabetes comes to the emergency room because of nausea and vomiting. Patient had been having nausea and vomiting for the last 3 days [employer]. Patient glucose had been high over 400s in the last 3 days [employer]. The patient was admitted with diagnosis of DKA and started on IV insulin drip. The patient also received IV fluid hydration. Patient's anion gap returned back to normal range and patient was transitioned back to his home insulin of 70/30 Novolin 20 units in the morning and 10 units at bedtime. The patient's nausea and vomiting resolved which was likely attributed to diabetic gastroparesis. Patient was back to his baseline with blood sugars within normal range. Patient is felt to have received maximal hospital benefit and will be discharged home. Dedicated discharge time 35 minutes. Disposition: [id number] TO HOME OR SELFCARE Time spent for discharge: 35 - Discharge Diagnoses (1) DKA (diabetic ketoacidosis) Status: Acute Qualifiers: Diabetes mellitus shared services representative insulin use: with [facility] use Diabetes mellitus complication detail: without coma (2) Hyponatremia Status: Acute (3) Vomiting Status: Acute (4) Hypertension Status: Chronic Qualifiers: Hypertension type: essential hypertension Qualified Code(s): I10 - Essential (primary) hypertension (5) Noncompliance Status: Chronic Core Measure Documentation - Palliative Care Palliative Care/ Comfort Measures: Not Applicable - Core Measures Any of the following diagnoses?: none Exam - Constitutional Vitals: Temp Pulse Resp BP Pulse Ox 97.8 F 72 18 122/86 99 12/24/19 08:14 12/24/19 09:42 12/24/19 08:14 12/24/19 09:42 12/24/19 08:14 General appearance: Present: no acute distress, well-nourished - EENT Eyes: Present: PERRL ENT: hearing intact, clear oral mucosa - Neck Neck: Present: supple, normal ROM - Respiratory Respiratory effort: normal Respiratory: bilateral: CTA - Cardiovascular Heart Sounds: Present: S1 & S2. Absent: rub, click - Extremities Extremities: pulses symmetrical, No edema Peripheral Pulses: within normal limits - Abdominal General gastrointestinal: Present: soft, non-tender, non-distended, normal bowel sounds Male genitourinary: Present: normal - Integumentary Integumentary: Present: clear, warm, dry - Musculoskeletal Musculoskeletal: gait normal, strength equal bilaterally - Psychiatric Psychiatric: appropriate mood/affect, intact judgment & insight - Neurologic Neurologic: CNII-XII intact, moves all extremities Plan Activity: advance as tolerated Weight Bearing Status: Weight Bear as Tolerated Follow up with: PRIMARY CARE, [Primary Care Provider] - 3-5 Days Prescriptions: Insulin NPH/Regular [NovoLIN 70/30] 20 unit SQ QAM 30 Days units Insulin NPH/Regular [NovoLIN 70/30] 10 unit SQ QHS 30 Days units
[2019-12-24 12:32] VITALS: BP 124/78
== END 2019-12-24 18:44 | disposition home or self-care (01) | DRG 638 ==
LOC: ED 14:18 → CC1 23:19 → 4A 12-22 22:09
PROVIDERS: ADMIT Internal Medicine Geriatric Medicine; ATTEND Hospitalist
DX: E11.10 Type 2 diabetes mellitus with ketoacidosis without coma (principal); E87.1 Hypo-osmolality and hyponatremia; I10 Essential (primary) hypertension; F17.200 Nicotine dependence, unspecified, uncomplicated; Z79.4 Long term (current) use of insulin; E78.2 Mixed hyperlipidemia; Z91.19 Patient's noncompliance with other medical treatment and regimen
CPT/HCPCS: 36415; 80048; 80053; 81001; 82010; 82805; 82962; 83036; 83735; 84100; 85025; 96365; 96375; 99406; G0378; A9270-GY; J1170; J1815; J2270; J2405; J7030